=== PATIENT | male | born 2000 | race Caucasian/White ===

== ENCOUNTER 2019-08-03 14:15 | Emergency (ER) | payer OTHER ==
[2019-08-03 14:32] VITALS: BP 126/75
--- NOTE | 2019-08-03 15:17 | ED ---
GI/ HPI - HPI Summary HPI Summary: 18 yr old male with the complaint of multiple sex partners and wants STD screening. The patient denies having any symptoms or knowledge of a specific exposure. He has had chlamydia in the past. He states he has had unprotected hetero sexual sex with multiple people. He denies dysuria, frequency, hesitancy , discharge, rashes, testicular pain. - History of Current Complaint Chief Complaint: [facility] Time Seen by Provider: 08/03/19 14:47 Stated Complaint: PERSONAL Pain Intensity: 0 - Allergy/Home Medications Allergies/Adverse Reactions: Allergies Allergy/AdvReac Type Severity Reaction Status Date / Time Penicillins Allergy Hives Verified 08/03/19 14:32 Home Medications: Home Medications Dextroamphetamine/Amphetamine [Adderall Xr 20 mg Capsule] 20 mg PO DAILY [History Confirmed 08/03/19] Lisdexamfetamine Dimesylate [Vyvanse] 40 mg PO DAILY 08/03/19 [History Confirmed 08/03/19] PMH/Surg Hx/FS Hx/Imm Hx Infectious Disease History: No Infectious Disease History: Denies: Traveled Outside the [place] in Last 30 Days - Family History Known Family History: Positive: None - Social History Occupation: Student Alcohol Use: Occasionally Substance Use Type: Reports: Marijuana Smoking Status (MU): Light Every Day Tobacco Smoker Review of Systems Constitutional: Negative Positive: other - STI exposure All Other Systems Reviewed And Are Negative: Yes Physical Exam Triage Information Reviewed: Yes Vital Signs On Initial Exam: Initial Vitals Temp Pulse Resp BP Pulse Ox 99.3 F 99 16 126/75 98 08/03/19 14:27 08/03/19 14:27 08/03/19 14:27 08/03/19 14:27 08/03/19 14:27 Vital Signs Reviewed: Yes Appearance: Positive: Well-Appearing, No Pain Distress Skin: Positive: Warm, Skin Color Reflects Adequate Perfusion Head/Face: Positive: Normal Head/Face Inspection Eyes: Positive: EOMI ENT: Positive: Normal ENT inspection Neck: Positive: Nontender Respiratory/Lung Sounds: Positive: Clear to Auscultation, Breath Sounds Present Cardiovascular: Positive: RRR. Negative: Murmur Abdomen Description: Positive: Nontender Male Genital Exam: Positive: Normal Genitalia, No Hernia. Negative: Hernia Mass , Scrotum Tenderness (R), Scrotum Tenderness (L), Testicular Tenderness (R), Testicular Tenderness (L), Urethral Discharge Musculoskeletal: Positive: Strength/ROM Intact Neurological: Positive: Sensory/Motor Intact, Alert, Oriented to Person Place, Time, CN Intact II-III Psychiatric: Positive: Normal Diagnostics - Vital Signs Vital Signs Temp Pulse Resp BP Pulse Ox 08/03/19 14:27 99.3 F 99 16 126/75 98 - Laboratory Lab Statement: Any lab studies that have been ordered have been reviewed, and results considered in the medical decision making process. [facility] Course/Dx - Course Course Of Treatment: 18 yr old with multiple sex partners. STI screening sent. Await results. He has no symptoms. - Diagnoses Provider Diagnoses: Screening examination for STD (sexually transmitted disease) Discharge ED - Sign-Out/Discharge Documenting (check all that apply): Patient Departure All imaging exams completed and their final reports reviewed: No Studies - Discharge Plan Condition: Good Disposition: HOME Patient Education Materials: Safe Sex (ED) Referrals: No Primary Care Phys,NOPCP [Primary Care Provider] - [facility] [place] [facility] [Outside] - Billing Disposition and Condition Condition: GOOD Disposition: Home
[2019-08-04 13:57] LABS: HIV 4th Generation Nonreactive (Nonreactive)
[2019-08-05 12:26] LABS: Chlamydia trachomatis NAA Negative (Negative); Neisseria gonorrhoeae (GC) NAA Negative (Negative)
--- NOTE | 2019-08-06 10:15 | UC ---
- Progress Note Progress Note: Please advise that screening for Chlamydia and GC, HIV are all negative. Course/Dx - Diagnoses Provider Diagnoses: Screening examination for STD (sexually transmitted disease) Discharge ED - Sign-Out/Discharge Documenting (check all that apply): Post-Discharge Follow Up All imaging exams completed and their final reports reviewed: No Studies - Discharge Plan Condition: Good Disposition: HOME Patient Education Materials: Safe Sex (ED) Referrals: [facility] [Outside] No Primary Care Phys,NOPCP [Primary Care Provider] - - Billing Disposition and Condition Condition: GOOD Disposition: Home
== END 2019-08-03 15:23 | disposition home or self-care (01) ==
LOC: UCCORT 14:15
DX: Z11.3 Encounter for screening for infections with a predominantly sexual mode of transmission (principal); F17.290 Nicotine dependence, other tobacco product, uncomplicated; Z88.0 Allergy status to penicillin
CPT/HCPCS: 36415; 86780; 87389; 87491; 87591; 99201; G0463